=== PATIENT | female | born 1995 | race Caucasian/White ===

== ENCOUNTER 2017-03-28 05:04 | Emergency (ER) | payer BC ==
--- NOTE | 2017-03-28 05:17 | CPEKG ---
Heart Rate: 84 RR Interval: 714 P-R Interval: 116 QRSD Interval: 94 QT Interval: 344 QTC Interval: 407 P [place]: -3 QRS [place]: 65 T Wave [place]: 55 EKG Severity - NORMAL ECG - EKG Impression: SINUS RHYTHM Electronically Signed By: Jania Munoz 28-Mar-2017 23:08:25
--- NOTE | 2017-03-28 05:42 | EDPHY ---
H & P Stated Complaint: chest pain X 3 hours, woke from sleep Time Seen by Provider: 03/28/17 05:22 HPI/ROS: HPI The patient presents with chest pain which awoke her from sleep about 3 hr ago, starting suddenly, sharp in nature, is in her anterior chest and radiates throughout her chest. It is worse with deep breaths. She took a dose of ibuprofen with some improvement in her symptoms. She has no prior history of similar. She denies any trauma. She has been feeling well otherwise and denies any cough or fever.. REVIEW OF SYSTEMS Constitutional: No fever, no chills. Eyes: No discharge. ENT: No sore throat. Cardiovascular: Positive for chest pain, no palpitations. Respiratory: No cough, no shortness of breath. Gastrointestinal: No abdominal pain, no vomiting. Genitourinary: No hematuria. Musculoskeletal: No back pain. Skin: No rashes. Neurological: No headache. PMHx: Healthy Soc Hx: College student, 1 week ago travel to [place] via airplane PHYSICAL General Appearance: Alert, no distress Eyes: Pupils equal and round no pallor or injection ENT, Mouth: Mucous membranes moist Respiratory: There are no retractions, lungs are clear to auscultation Cardiovascular: Regular rate and rhythm, no chest wall tenderness Gastrointestinal: Abdomen is soft and non-tender, no masses, bowel sounds normal Neurological: A&O, moves all extremities Skin: Warm and dry, no rashes Musculoskeletal: Neck is supple non tender Extremities: symmetrical, full range of motion Psychiatric: Patient is oriented X 3, there is no agitation Source: Patient Exam Limitations: No limitations - Personal History LMP (Females 10-55): Now Current Tetanus/Diphtheria Vaccine: Yes Current Tetanus Diphtheria and Acellular Pertussis (TDAP): Yes - Medical/Surgical History Hx Asthma: No Hx Chronic Respiratory Disease: No Hx Diabetes: No Hx Cardiac Disease: No Hx Renal Disease: No Hx Cirrhosis: No Hx Alcoholism: No Hx HIV/AIDS: No Hx Splenectomy or Spleen Trauma: No Other PMH: denies - Social History Smoking Status: Never smoked Constitutional: Initial Vital Signs Temperature (C) 37.0 C 03/28/17 05:06 Heart Rate 114 H 03/28/17 05:06 Respiratory Rate 16 03/28/17 05:06 Blood Pressure 121/86 H 03/28/17 05:06 O2 Sat (%) 97 03/28/17 05:06 O2 Delivery Mode Room Air Allergies/Adverse Reactions: No Known Allergies Allergy (Unverified 03/28/17 05:06) Home Medications: Medication Instructions Recorded NK [No Known Home Meds] 03/28/17 Medical Decision Making - Diagnostics EKG Interpretation: EKG: Complete interpretation has been separately recorded in the [email or web address] archive. Summary impression: Normal sinus rhythm Differential Diagnosis: This is a 21-year-old female college student, healthy, who presents with chest pain which awoke her from sleep tonight which is sharp and pleuritic, throughout her chest, with no associated features. It is improved with ibuprofen. Differential diagnosis includes costochondritis, pulmonary embolism, pneumothorax, pneumonia, GERD, anxiety. Given patient is slightly tachycardic and had recent airplane flight, D-dimer is ordered. In the emergency department, labs and studies are unremarkable including a D- dimer. Patient's pain is most likely musculoskeletal or due to costochondritis. I have explained this to her. She will be discharged from the ER in good condition. - Data Points Laboratory Results: Laboratory Results 03/28/17 05:36 03/28/17 05:36 Departure - Departure Disposition: Home, Routine, Self-Care Clinical Impression: Chest pain Qualifiers: Chest pain type: chest pain on breathing Qualified Code(s): R07.1 - Chest pain on breathing Condition: Good Instructions: Costochondritis (ED) Additional Instructions: Your chest pain is likely related to a condition called pleurisy or costochondritis. This is something that is caused by a virus or can start on its own. You should take ibuprofen 400 mg every 6 hr as needed for pain until your better. Symptoms can last for a week, though should not gets any worse. You should return to the emergency department if your feeling worse in any way. Referrals: GERARD Sanchez,. [Clinic] - As per Instructions
[2017-03-28 05:46] LABS: % IMMATURE GRANULYOCYTES 0.4 % (0.0-1.1); ABSOLUTE IMMATURE GRANULOCYTES 0.03 10^3/uL (0.00-0.10); ADD DIFF? NO; ADD MORPH? NO; ADD SCAN? NO; ATYPICAL LYMPHOCYTE FLAG 10 (0-99); FRAGMENT RBC FLAG 0 (0-99); HEMATOCRIT 47.4 % (38.0-47.0); LEFT SHIFT FLG 0 (0-99); LIPEMIA HEMOLYSIS FLAG 90 (0-99); MEAN CELL HEMOGLOBIN 31.4 pg (27.9-34.1); MEAN CELL HEMOGLOBIN CONCENTR. 33.8 g/dL (32.4-36.7); MEAN CELL VOLUME 93.1 fL (81.5-99.8); MEAN PLATELET VOLUME 11.1 fL (8.7-11.7); PLATELET CLUMPS FLAG 0 (0-99); PLATELET COUNT 177 10^3/uL (150-400); RED BLOOD CELL COUNT 5.09 10^6/uL (4.18-5.33); RED CELL DISTRIBUTION WIDTH 13.3 % (11.5-15.2)
[2017-03-28 06:00] LABS: ANION GAP 18 mEq/L (8-16); CALCIUM 9.5 mg/dL (8.5-10.4); CARBON DIOXIDE 21 mEq/l (22-31); CHLORIDE 107 mEq/L (97-110); CREATININE 0.8 mg/dL (0.6-1.0); GLOMERULAR FILTRATION RATE > 60; GLUCOSE 92 mg/dL (70-100); POTASSIUM 4.1 mEq/L (3.5-5.2); SODIUM 146 mEq/L (134-144)
[2017-03-28 06:49] VITALS: BP 101/58; PULSE 93; RESP 18; TEMP 97.7; O2SAT 95
== END 2017-03-28 06:49 | disposition home or self-care (01) ==
DX: R07.1 Chest pain on breathing (principal)

== ENCOUNTER → 2017-06-04 | Outpatient (CLI) | payer BC | LOC: FIMAGING 16:08 | PROVIDERS: ATTEND Physician Assistant Medical | DX: Z30.431 Encounter for routine checking of intrauterine contraceptive device (principal); N92.0 Excessive and frequent menstruation with regular cycle ==